=== PATIENT | male | born 1970 | race Caucasian/White ===

== ENCOUNTER 2024-08-18 06:07 | Day surgery (SDC) | payer BC ==
[2024-08-18] MEDS ORDERED: Ketamine 500 mg/10 ML MDV IV ONE (06:08)
[2024-08-18] MEDS ORDERED: Lidocaine 2% 100 MG/5 ML Syringe IVPUSH ONE (06:08)
[2024-08-18] MEDS ORDERED: Glycopyrrolate 0.2 MG/ML 5 ML MDV IV ONE (06:08)
[2024-08-18] MEDS ORDERED: Propofol 200 MG/20 ML SDV IV ONE (06:08)
[2024-08-18] MEDS ORDERED: Sodium Chloride 0.9% 10 ML Syringe FLUSH PRN (06:15)
[2024-08-18] MEDS: Lactated Ringers 1,000 ML IV SCH (07:27)
[2024-08-18] MEDS: Simethicone Drops 40 MG/0.6 ML 30 ML Bottle ONE (07:36)
== END 2024-08-18 08:53 | disposition home or self-care (01) ==
LOC: FB.SDS 06:07
PROVIDERS: ATTEND Surgery
DX: Z12.11 Encounter for screening for malignant neoplasm of colon (principal); K52.9 Noninfective gastroenteritis and colitis, unspecified; K57.30 Diverticulosis of large intestine without perforation or abscess without bleeding; Z87.891 Personal history of nicotine dependence
CPT/HCPCS: 88305; A9270-GY; J1596; J2704; J3490; J7120